=== PATIENT | male | born 1970 | race Caucasian/White ===

== ENCOUNTER 2017-09-28 09:29 | Day surgery (SDC) | payer OTHER ==
[~2017-09-28] VITALS: Ht 165.1 cm; Wt 106.1 kg
[2017-09-28] MEDS ORDERED: IOHEXOL 350 MG/ML 50 ML BTL (for Cath Lab) OTHER ONE (09:30)
[2017-09-28 10:01] VITALS: BP 155/100; PULSE 100; RESP 18; TEMP 97.9; O2SAT 97
[2017-09-28] MEDS ORDERED: AMIO200T PO (10:05)
[2017-09-28] MEDS ORDERED: LIPI20TA PO (10:05)
[2017-09-28] MEDS ORDERED: LEVO100T5 PO (10:05)
[2017-09-28] MEDS ORDERED: METO25TA3 PO (10:05)
[2017-09-28] MEDS ORDERED: GLIP5TAB8 PO (10:05)
[2017-09-28] MEDS ORDERED: BRIL90TA PO (10:05)
[2017-09-28] MEDS ORDERED: ASPI-516 CHEW (10:05)
[2017-09-28] MEDS ORDERED: NS 1000P @30 MLS/HR (KVO) IV SCH (10:30)
[2017-09-28 10:31] LABS: AUTOMATED NEUTROPHIL # 6.2 TH/MM3 (1.8-7.7); BASOPHIL % 0.6 % (0.0-2.0); EOSINOPHIL # 0.1 TH/MM3 (0-0.4); EOSINOPHIL % 1.4 % (0.0-4.0); HEMATOCRIT 36.1 % (39.0-51.0); HEMOGLOBIN 12.6 GM/DL (13.0-17.0); LYMPH % 14.2 % (9.0-44.0); LYMPHOCYTE # 1.1 TH/MM3 (1.0-4.8); MEAN CORPUSCULAR HEMOGLOBIN 32.3 PG (27.0-34.0); MEAN CORPUSCULAR HGB CONC 34.7 % (32.0-36.0); MONO % 6.1 % (0.0-8.0); MONOCYTE # 0.5 TH/MM3 (0-0.9); NEUT % 77.7 % (16.0-70.0); PLATELET COUNT 367 TH/MM3 (150-450); RED BLOOD COUNT 3.89 MIL/MM3 (4.50-5.90); RED CELL DISTRIBUTION WIDTH 13.3 % (11.6-17.2)
[2017-09-28 10:46] LABS: PROTHROMBIN TIME - PATIENT 9.7 SEC (9.8-11.6)
[2017-09-28] MEDS ORDERED: MIDAZOLAM HCL 2 MG/2 ML VIAL ONE (10:55)
[2017-09-28] MEDS ORDERED: HEPARIN-NS/PF FLUSH BAG 2,000 ML IV FLUSH ONE (10:55)
[2017-09-28] MEDS ORDERED: NITROGLYCERIN INJ 5 ML ONE (10:56)
[2017-09-28] MEDS ORDERED: VERAPAMIL HCL 5 MG/2 ML VIAL ONE (10:56)
[2017-09-28] MEDS ORDERED: HEPARIN SODIUM - IV 10,000 UNITS/10 ML VIAL ONE (10:56)
[2017-09-28 11:00] LABS: BICARBONATE 19.1 MEQ/L (21.0-32.0); CALCIUM 9.2 MG/DL (8.5-10.1); CREATININE 2.4 MG/DL (0.60-1.30)
--- NOTE | 2017-09-28 11:39 | CATHPROC ---
[place] HIS Report Study Information Study Number Admission Scheduled Start Study Start [id number] Sep 28 2017 9:29AM 09/28/2017 Sep 28 2017 10:43AM [place] [facility] Cardiac Catheterization Admit Source Facility Department Other [facility] - [facility] Physician and Clinical Staff Initial Geri Loomis Fiber Optic Assembly Worker Milton Escamilla RN Fiber Optic Assembly Worker Candi Dyer,ADRI[place] Recorder Diya Seo,RT(R) (BS) Scrub Mami BalderasRT(R) Procedures Performed Procedure Location (Site) Vessel Name Coronary Angiograms LCA Left Coronary Coronary Angiograms RCA Right Coronary L Heart Cath Wire insertion Radial (right) Radial Art. Equipment Time Eyedotter Description Size Mfg Part Number Used/Scraped TRANSDUCER, TRUWAVE [id number] 11:22 EVANS BOWMAN * Used W/STOCKCOCK *[id number] 11:22 [employer] PACK, CCL CUSTOM * Used *[id number] 11:22 [employer] SUPPORT, ARTERIAL ADULT 45908 *[id number] Used [id number] 11:22 [employer] PACER PEN, SKIN DUAL W/ RULER * Used *[id number] BAND, RADIAL COMPRESSION TR [id number] 11:32 [employer] MEDICAL 24CM Used SHORT 24 *[id number] 11:22 [email or web address] WIRE, EXCHANGE 260CM 3MMJ 260CM Used *[id number] 11:22 NAMIC MANIFOLD, 4 PORT * Used *[id number] 11:22 NAMIC TUBING, HIGH PRESSURE 20" 20" Used *[id number] 11:22 [employer] OMNIPAQUE, 350 MG, 150ML 150ML [id number] Used [id number] 11:22 [place] [employer] BLANKET,WARM AIR CCL * Used *[id number] CATHETER, FR5 OPTITORQUE [id number] 11:14 [employer] FR 5 Used RADIAL TIG 4.0 *[id number] SHEATH, FR6 TRANSRADIAL RM*[id number] 11:22 [employer] MED[employer] FR 6 Used SLENDER 10CM *[id number] History: Current Medications Medication Dosage/Unit Route Frequency Last Date/Time Taken Statins (any) Beta Mary ASA BRILLINTA Glypizide LOPRESSOR History: Allergies Allergy Reaction No Known Allergies History: Risk Factors Family History of Hypertension Dyslipidemia Previous MS Previous Heart Failure Premature CAD No Yes No Yes No Prior Valve Prior PCI Prior PCIDate Prior CABG Surgery No Yes 05/06/2017 No Cerebrovascular Peripheral Artery Chronic Lung On Dialysis Diabetes Diabetes Therapy Disease Disease Disease No No No No Yes Oral History: Stress Tests Stress or Imaging Studies Performed No History: Other Disease Selection Items CAD History: Other Current Smoker Method Packs a Day Years Used Pack Years Yes Cigarettes 1 25 25 Labs Hgb (g/dl) Hct (%) RBC (MIL/MM3) WBC (l/cumm) Platelets (thousands) 11.60-17.00 35.00-51.00 4.00-5.90 4.00-11.00 150.00-450.00 12.6 36.1 3.8 8 367 BUN (mg/dl) Creatinine (mg/dl) BUN:Creatinine (1:x) 7.00-18.00 0.50-1.30 10.00-20.00 38 2.4 15.8 PT (sec) INR (PTT:PT) 9.80-11.60 0.90-1.10 9.7 1 CPK-MB (ng/ML) 0.50-3.60 Not Drawn Medication Medication Total Dose (Bolus/Oral) Medication Total Dosage/Unit 1% XYLOCAINE 20 mL RADIAL COCKTAIL 5 mL (Bolus) Medications (Bolus/Oral) Medication Time Given Dosage/Unit Administered By Reason 1% XYLOCAINE 09/28/2017 11:21:54 AM 20 mL Moya, Taher 20 mL 1% XYLOCAINE given by Griffin Ta in Right Radial via Subcutaneous. Ntg 200mcg Verapamil 2.5mg Heparin RADIAL COCKTAIL 09/28/2017 11:22:40 AM 5 mL (Bolus) Moya, Taher 2000U 5 mL (Bolus) RADIAL COCKTAIL given by Geri Moya in Right Radial via Radial. Using [Solution Name] . Reason: Ntg 200mcg Verapamil 2.5mg Heparin 2000U. Medication (Drip) Medication Time Given Dosage/Unit Concentration/Unit Diluent (ml) Solution IV Solutions 09/28/2017 10:54:39 AM 0 mL (IV) 500 NaCl .9 Patient arrived on IV Solutions in Left Antecubital via Peripheral IV. Pump/Drip Flow = 20 ml/hr usin g NaCl .9. Initial Case Assessment Cardiovascular HR Rhythm NIBP Chest Pain 100 reg 137/91 0 Edema Present Skin color Skin None Normal Warm Circulatory - Right Pulses Dorsalis Pedis Femoral Radial 2 2 2 Scale (0,1,2,3,4,d) Circulatory - Left Pulses Dorsalis Pedis Femoral Radial 2 2 Scale (0,1,2,3,4,d) Circulatory - Lower Extremities Color Lower Right Color Lower Left Normal Normal Neurological State Oriented to time-place- Alert Moves all extremities person Respiration - General Respiration Rate SpO2 (%) O2 (lpm) (B/min) 20 97 0 Final Case Assessment Cardiovascular HR Rhythm NIBP Chest Pain 104 reg 127/83 0 Edema Present Skin color Skin None Normal Warm Circulatory - Right Pulses Dorsalis Pedis Femoral Radial 2 2 2 Scale (0,1,2,3,4,d) Circulatory - Left Pulses Dorsalis Pedis Femoral Radial 2 Scale (0,1,2,3,4,d) Neurological State Oriented to time-place- Alert Moves all extremities person Respiration - General Respiration Rate SpO2 (%) (B/min) 20 95 Chronological Log Time Study Chronological Log 10:53:51 Patient arrived via Bed. 10:53:52 Patient Name, D.O.B, / Armband Verified By R.N. 10:53:53 Consent signed by the physician and the patient and verified by the [facility] staff. 10:53:55 Pre-op and post- op instructions given; patient acknowledges understanding of instructions. 10:53:59 Verbal Stimulation=2 Physical Stimulation=2 Airway=2 Respiration=2 TOTAL=8. (0=absent, 1=li mited, 2=present) 10:54:01 Presedation assessment performed by [facility] RN. 10:54:13 Patient has been NPO for More than 6Hrs. 10:54:13 Skin Breakdown-none 10:54:31 Clarke Prominences Protected 10:54:38 A # 20 IV was noted in the Antecubital (left). Grade = 0 10:54:39 Patient arrived on IV Solutions in Left Antecubital via Peripheral IV. Pump/Drip Flow = 20 ml/hr using NaCl .9. 10:54:40 History and physical on the chart or being dictated. Assessment: Initial Case, GY=804 BPM, Rhythm=reg, GZYT=776/91 mmhg, Chest Pain=0, Edema=None, Color=Normal, Skin = Warm Right Pulses: Rylan Ped=2, Femoral=2, Radial=2 Left Pulses: Rylan Ped=2, Femoral=2 10:54:41 Lower Right Extremities: Color=Normal Lower Left Extremities: Color=Normal Neurological: State=Alert, Ox3, RODGERS Respiration: Resp=20 B/min, SpO2=97 %, O2=0 lpm 10:55:55 Allens test performed on the right radial and ulnar artery by Aurelia with a positive resul t Vitals capture started with the following parameters, Patient=Adult, Interval=5 min, Initial Pr ejibab=194 mmHg, 11:02:12 Deflation Rate=5 mmHg, Cuff placed on left arm 11:02:48 HR=99 bpm, DEXU=294/94 mmhg, SpO2=97.0 %, Resp=23 B/min, Pain=0, Katherin=10, Coyne=2 11:07:47 CG=429 bpm, VUER=453/97 mmhg, SpO2=97.0 %, Resp=23 B/min, Pain=0, Katherin=10, Coyne=2 11:09:44 MD arrived. 11:11:07 Reference ECG taken 11:12:50 DC=984 bpm, AXGT=103/91 mmhg, SpO2=98.0 %, Resp=14 B/min, Pain=0, Katherin=10, Coyne=2 11:16:52 Pressure channel 1 zero failed. 11:17:21 Pressure channel 1 zeroed. 11:17:47 HR=99 bpm, IGWM=429/91 mmhg, SpO2=96.0 %, Resp=21 B/min, Pain=0, Katherin=10, Coyne=2 Time Out. Correct patient, correct procedure, correct physician, power injector not loaded with contrast with surgical 11:21:35 team present. Time Out Concurred by MD and individual staff in procedure. 11:21:46 Case Start 11:21:48 Verbal Stimulation=2 Physical Stimulation=2 Airway=2 Respiration=2 TOTAL=8. (0=absent, 1=li mited, 2=present) 11:21:54 20 mL 1% XYLOCAINE given by Geri Moya in Right Radial via Subcutaneous. 11:22:00 Access site was Radial Artery. 11:22:06 A wire was inserted via Radial (right). A SHEATH, FR6 TRANSRADIAL SLENDER 10CM FR 6 was advanced into the Fem Art (right) using the Per cutaneous 11:22:14 technique. 5 mL (Bolus) RADIAL COCKTAIL given by Geri Moya in Right Radial via Radial. Using [Solution Name]. Reason: Ntg 11:22:40 200mcg Verapamil 2.5mg Heparin 2000U. 11:22:48 ZG=335 bpm, QKWH=413/92 mmhg, SpO2=98.0 %, Resp=17 B/min, Pain=0, Katherin=10, Coyne=2 A CATHETER, FR5 OPTITORQUE RADIAL TIG 4.0 FR 5 was advanced over a wire. OMNIPAQUE, 350 MG, 150 ML 150ML 11:23:30 was used for injections. Recorded Pressure: Ao, QA=180, Condition=Condition 1 11:24:43 (Aorta) Ao 108/86/97 11:24:54 The LCA was injected and visualized at various angles. OMNIPAQUE, 350 MG, 150ML 150ML used . 11:27:49 OR=728 bpm, PQPT=246/83 mmhg, SpO2=94.0 %, Resp=25 B/min, Pain=0, Katherin=10, Coyne=2 11:27:59 The RCA was injected and visualized at various angles. OMNIPAQUE, 350 MG, 150ML 150ML used . 11:31:03 Catheter was removed Assessment: Final Case, JY=979 BPM, Rhythm=reg, QXEU=698/83 mmhg, Chest Pain=0, Edema=None, Color=Normal, Skin = Warm Right Pulses: Rylan Ped=2, Femoral=2, Radial=2 11:31:09 Left Pulses: Femoral=2 Neurological: State=Alert, Ox3, RODGERS Respiration: Resp=20 B/min, SpO2=95 % 11:32:13 Catheter(s) removed without difficulty Radial Compression Device Used. 9 mLs of air placed in BAND, RADIAL COMPRESSION TR SHORT 24 24C M. Affected 11:32:15 hand 96 % O2 saturation. 11::29 Case End 11:32:30 Sterile dressing applied to site 11:32:31 No case complications noted. 11:32:32 Cine recording checked. 11:32:34 Bedside Report will be given. 11:32:38 Verbal Stimulation=2 Physical Stimulation=2 Airway=2 Respiration=2 TOTAL=8. (0=absent, 1=li mited, 2=present) 11:32:48 HR=99 bpm, EBAH=530/87 mmhg, SpO2=96.0 %, Resp=13 B/min, Pain=0, Katherin=10, Coyne=2 11:32:53 A Left Heart Cath was performed. 11:32:59 Clinical correlaton risk stratification. 11:37:23 Vitals capture stopped. End Study - Contrast Media Used In Study Contrast Total Opened (mL) Total Used (mL) Total Wasted (mL) Omnipaque 15 15 0 End Study - Maximum Contrast Load Max Contrast Load (mL) 220.8 End Study - Radiation Exposure Fluoro Time (minutes) 2.4 End Study - Sheaths Sheaths Pulled By Sheath Hold Time (min) Mami Balderas End Study - Patient Disposition Complications Transferred To No Outpatient Bed
[2017-09-28] MEDS ORDERED: SODIUM CHLOR 0.9% 1000 ML INJ 300 ML IV ONE (11:45)
--- NOTE | 2017-09-28 12:00 | MA ---
cc: Geri Moya MD DATE: 09/28/2017 INDICATIONS FOR PROCEDURE: This is a 47-year-old with coronary artery disease, myocardial infarction, positive stress test for ischemia. PROCEDURE PERFORMED: Left heart catheterization angiogram. PROCEDURE: After obtaining informed consent, the patient in fasting state, was brought to the laboratory clerk. The right radial area was sterilized, draped with sterile drapes. 1% Xylocaine used to cleanse the area. A 6-Liberian sheath used to access the right radial artery. [place] catheter 5-Liberian to intubate left main, intubate right coronary artery. No left ventriculogram was performed. Of note, total of 15 mL of contrast was used throughout the procedure. The patient's creatinine was 2.4. The patient tolerated this procedure well and at the end of the procedure, sheath taken out and TR band was applied. He was sent back to his room in stable condition. No complications. CORONARY ANGIOGRAM: The left main coronary artery is medium size vessel, bifurcates in LAD, left circumflex coronary artery and there is no significant disease. Left anterior descending coronary artery has a stent patent. Very small diagonal coming off the stented, very small. Then, the LAD becomes completely occluded. There is a collateral to the most distal portion of the LAD just around the apex, not going back too far. That collateral coming from the diagonal. Left circumflex artery medium size vessel, 50% mid segment. Right coronary artery dominant. There is about 40% midsegment. CONCLUSION: Completely occluded LAD with collateral to the most distal small segment around the apex. 50% circumflex. 40% right coronary artery. Geri Moya MD SABINA/TL , 11:35 AM , 11:59 AM
--- NOTE | 2017-09-28 12:16 | EKG ---
Date Performed: 09/28/2017 Time Performed: 10:33:34 PTAGE: 47 years EKG: Sinus rhythm . Possible left atrial abnormality Indeterminate axis Anteroseptal infarct - age undetermined Abnorma l ECG NO PREVIOUS TRACING DOCTOR: Rolf Pang Interpretating Date/Time 09/28/2017 12:15:27
== END 2017-09-28 15:45 | disposition home or self-care (01) ==
LOC: HDOC 09:29 → HDIC 09:29 → HDOC 15:45
PROVIDERS: ATTEND Internal Medicine Cardiovascular Disease
DX: I25.10 Atherosclerotic heart disease of native coronary artery without angina pectoris (principal); I21.02 ST elevation (STEMI) myocardial infarction involving left anterior descending coronary artery; I25.5 Ischemic cardiomyopathy; E66.9 Obesity, unspecified; E11.9 Type 2 diabetes mellitus without complications; Z79.84 Long term (current) use of oral hypoglycemic drugs; Z68.38 Body mass index [BMI] 38.0-38.9, adult
CPT/HCPCS: 80048; 85025; 85610; 85730; 93005; 93454; C1769; C1893; J1644; J2250; J3010; Q9967